=== PATIENT | female | born 1960 | race Caucasian/White ===

== ENCOUNTER 2016-11-12 00:53 | Inpatient (IN) | payer MEDICARE, MEDICAID ==
[2016-11-12] VITALS (21 sets, daily range): BP systolic 105–159; BP diastolic 70–87; PULSE 62–120; RESP 19–24; TEMP 95.2–103.2; O2SAT 99–100
[~2016-11-12] VITALS: Ht 157.5 cm; Wt 53.6 kg
[2016-11-12] MEDS ORDERED: PROPOFOL 1000 MG/100 ML INJ 100 ML ONE (00:59)
[2016-11-12 01:14] LABS: I-STAT POTASSIUM 4.4 MMOL/L (3.5-4.9)
[2016-11-12 01:19] LABS: BASOPHIL # 0.2 TH/MM3 (0-0.2); BASOPHIL % 0.9 % (0.0-2.0); EOSINOPHIL # 0.2 TH/MM3 (0-0.4); EOSINOPHIL % 1.3 % (0.0-4.0); HEMATOCRIT 43.5 % (35.0-46.0); LYMPH % 45.8 % (9.0-44.0); LYMPHOCYTE # 8.5 TH/MM3 (1.0-4.8); MEAN CELL VOLUME 88.2 FL (80.0-100.0); MEAN CORPUSCULAR HEMOGLOBIN 29.1 PG (27.0-34.0); MONO % 3.7 % (0.0-8.0); NEUT % 48.3 % (16.0-70.0); PLATELET COUNT 375 TH/MM3 (150-450); RED BLOOD COUNT 4.93 MIL/MM3 (4.00-5.30); RED CELL DISTRIBUTION WIDTH 14.9 % (11.6-17.2); WHITE BLOOD COUNT 18.6 TH/MM3 (4.0-11.0)
[2016-11-12] MEDS ORDERED: DIPHTH/TETANUS/ACEL PERTUSSIS (BOOSTER) 0.5 ML VIAL/PFS IM ONE (01:20)
[2016-11-12] MEDS: SODIUM CHLOR 0.9% 1000 ML INJ 1,000 ML IV SCH ×2 (01:20→18:04)
[2016-11-12] MEDS ORDERED: IOHEXOL 350 MG/ML 10 ML VIAL (for RAD DIAG) IV ONE (01:23)
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
[2016-11-12 01:25] LABS: APTT (PATIENT) 29.5 SEC (24.3-30.1); PROTHROMBIN TIME - PATIENT 11.5 SEC (9.8-11.6)
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
[2016-11-12 01:27] LABS: HEMO FLAGS AUTO DIFF
[2016-11-12] MEDS ORDERED: SODIUM CHLORIDE 0.9% FLUSH 10 ML FLUSH IV FLUSH PRN (01:30)
[2016-11-12] MEDS ORDERED: ONDANSETRON HCL 4 MG/2 ML VIAL IV PRN (01:30)
[2016-11-12] MEDS ORDERED: NALOXONE HCL 0.4 MG/ML AMP IV PRN (01:30)
[2016-11-12] MEDS ORDERED: Post-op Orders (for Pharmacy) MISC XX ONE (01:30)
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
[2016-11-12] MEDS ORDERED: fentaNYL DRIP 250 ML IV SCH (01:45)
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
[2016-11-12 01:58] LABS: BASOPHILS 1 % (0-2); EOSINOPHILS 2 % (0-4); NEUTROPHIL # MANUAL DIFF 9.3 TH/MM3 (1.8-7.7); POLYS (SEG NEUTROPHILS) 50 % (16-70); WBC DIFF SAMPLE 100
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
[2016-11-12 01:59] LABS: PLATELET ESTIMATE SMEAR NORMAL (NORMAL); PLATELET MORPHOLOGY NORMAL (NORMAL); SCAN/DIFF FINAL DIFF MANUAL
[2016-11-12] MEDS: levETIRAcetam INJ 500 MG in SODIUM CHLORIDE 0.9% INJ 100 ML IV SCH ×3 (02:03→22:06)
[2016-11-12] MEDS: PROPOFOL 1000 MG/100 ML INJ 100 ML IV SCH ×2 (02:04→18:05)
[2016-11-12] MEDS: SODIUM CHLORIDE 0.9% FLUSH 10 ML FLUSH IV FLUSH SCH ×2 (02:04→21:00)
[2016-11-12] MEDS: CHLORHEXIDINE 0.12% (ORAL KIT) 15 ML CUP MT SCH ×2 (02:04→20:00)
[2016-11-12] MEDS: PANTOPRAZOLE SODIUM 40 MG VIAL IV SCH (02:05)
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
[2016-11-12 03:38] LABS: BLOOD GAS BASE EXCESS -9.9 mmol/L (-2-2); BLOOD GAS HCO3 17 mmol/L (22-26); BLOOD GAS O2 HGB SATURATION 98 % (90-100); BLOOD GAS OXYGEN CONTENT 19.4 Vol % (12.0-20.0); BLOOD GAS PCO2 45 mmHg (38-42); BLOOD GAS PO2 495 mmHg (61-120); BLOOD GAS TOTAL HGB 13.2 G/DL (12.0-16.0); CRITICAL VALUE YES; OXYGEN DEVICE VENTILATOR; TEMP CORR TO 98.6; VENT SETTINGS AC18/400/+5
[2016-11-12 03:39] LABS: DRAW SITE ALINE; FIO2 100 %; STAT YES; ULNAR PULSE PRESENT
[2016-11-12] MEDS ORDERED: 3% SALINE INJ 500 ML IV ONE (04:00)
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
[2016-11-12] MEDS: RESP: ALBUTEROL 2.5 MG/IPRATROPIUM 0.5 MG NEB (SCH) NEB ×5 (04:34→21:10)
[2016-11-12] MEDS: fentaNYL DRIP 250 ML IV SCH ×2 (07:00→19:22)
--- NOTE | 2016-11-12 07:04 | RADRPT ---
EXAM DATE/TIME: 11/12/2016 06:04 [facility] COMPARISON: No previous studies available for comparison. INDICATIONS : Central line placement. MEDICAL HISTORY : None. SURGICAL HISTORY : Right shoulder arthroplasty ENCOUNTER: Subsequent ACUITY: 1 day PAIN SCORE: Non-responsive. LOCATION: Bilateral chest FINDINGS: No infiltrate seen. No pleural effusion or pneumothorax. Endotracheal tube tip is about 3 cm above the thee. There is a nasogastric tube with tip in the sto mach. Left subclavian central venous catheter has been placed, tip at the atriocaval junction. CONCLUSION: Lungs remain clear. New left subclavian central venous catheter with tip in the superior vena cava. N o pneumothorax or other acute complication. Brandon Ivy MD on November 12, 2016 at 7:01 Board Certified Radiologist. This report was verified electronically.
[2016-11-12] MEDS ORDERED: POTASSIUM CHLOR 20 MEQ PREMIX 100 ML IV PRN ×2 (07:45)
[2016-11-12] MEDS ORDERED: POTASSIUM PHOSPHATE MONOBASIC 500 MG TAB PO PRN (07:45)
[2016-11-12] MEDS ORDERED: POTASSIUM PHOSPHATE MONOBASIC 500 MG TAB PO/TUBE PRN (07:45)
[2016-11-12] MEDS ORDERED: MAGNESIUM SULFATE INJ 2 GM in SODIUM CHLORIDE 0.9% INJ 96 ML IV PRN (07:45)
[2016-11-12] MEDS ORDERED: SODIUM PHOSPHATE INJ 30 MMOL in SODIUM CHLOR 0.9% 250 ML INJ 240 ML IV PRN (07:45)
[2016-11-12] MEDS ORDERED: POTASSIUM CHLORIDE 25 MEQ EFFERVESCENT TAB PO PRN (07:45)
[2016-11-12] MEDS ORDERED: MAGNESIUM OXIDE 400 MG TAB PO PRN (07:45)
[2016-11-12] MEDS ORDERED: POTASSIUM CHLOR 40 MEQ PREMIX 100 ML IV PRN (07:45)
[2016-11-12] MEDS ORDERED: MAGNESIUM SULFATE INJ 4 GM in SODIUM CHLORIDE 0.9% INJ 92 ML IV PRN (07:45)
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
[2016-11-12] MEDS ORDERED: VANCOMYCIN INJ 1,000 MG in SODIUM CHLOR 0.9% 250 ML INJ 250 ML IV ONE (08:00)
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
[2016-11-12] MEDS: PIPERACIL-TAZO 3.375 GM PREMIX 50 ML IV SCH ×3 (08:30→22:08)
[2016-11-12] MEDS ORDERED: SODIUM CHLORIDE 23.4% INJ 240 MEQ in SYRINGE/BAG 1 EA IV ONE (08:45)
[2016-11-12] MEDS: MANNITOL 12.5 GM/50 ML VIAL IV SCH ×3 (09:00→21:00)
[2016-11-12] MEDS ORDERED: THIAMINE INJ 100 MG in SODIUM CHLORIDE 0.9% INJ 100 ML IV SCH (09:00)
[2016-11-12 09:31] LABS: BLOOD GAS BASE EXCESS -6.5 mmol/L (-2-2); BLOOD GAS CARBOXYHEMOGLOBIN 0.9 % (0-4); BLOOD GAS HCO3 18 mmol/L (22-26); BLOOD GAS METHEMOGLOBIN 0.8 % (0-2); BLOOD GAS O2 HGB SATURATION 98 % (90-100); BLOOD GAS PCO2 35 mmHg (38-42); BLOOD GAS PO2 223 mmHg (61-120); CRITICAL VALUE NO; DRAW SITE ART LINE; FIO2 50 %; NUMBER OF ARTERIAL PUNCTURES 0; OXYGEN DEVICE VENTILATOR; STAT NO; TEMP CORR TO 98.6; ULNAR PULSE PRESENT; VENT SETTINGS AC22/550/PEEP5
[2016-11-12 09:32] LABS: BLOOD GAS BASE EXCESS -5.6 mmol/L (-2-2); BLOOD GAS CARBOXYHEMOGLOBIN 0.7 % (0-4); BLOOD GAS HCO3 21 mmol/L (22-26); BLOOD GAS O2 HGB SATURATION 97 % (90-100); BLOOD GAS OXYGEN CONTENT 18.3 Vol % (12.0-20.0); BLOOD GAS PCO2 53 mmHg (38-42); BLOOD GAS PO2 181 mmHg (61-120); BLOOD GAS TOTAL HGB 13.1 G/DL (12.0-16.0); CRITICAL VALUE YES; OXYGEN DEVICE VENTILATOR; TEMP CORR TO 98.6
[2016-11-12 09:33] LABS: DRAW SITE ART LINE; FIO2 50 %; NUMBER OF ARTERIAL PUNCTURES 0; STAT NO; ULNAR PULSE PRESENT; VENT SETTINGS AC18/400/PEEP5
[2016-11-12] MEDS ORDERED: NOREPINEPHRINE 4 MG/4 ML AMP ONE (09:49)
--- NOTE | 2016-11-12 10:39 | PD.OP ---
Operative Report Date of Surgery: Nov 12, 2016 Preoperative Diagnosis: (1) Traumatic brain injury Traumatic brain injury Postoperative Diagnosis: (1) Traumatic brain injury Procedure: Preoperative Diagnosis: Severe traumatic brain injury with small a small right subdural hematoma Postoperative Diagnosis: Same Procedure: Left frontal twist drill hole Brandy intracranial pressure monitor placement Anesthesia: Local with sedation. Surgeon: Elias Bauman MD Nutrition Coordinator(s): None Operation and Findings: Consent was obtained from her son. Patient is intubated. Neurological examination is poor with a GCS of 3/15. The left frontal region was shaved and the prep with chlor prep and sterilely draped. Using landmarks of 11 cm behind the nasion and 3 cm to the left of the midline, a 1 cm scalp incision was made after infiltrating with 1% lidocaine with epinephrine solution. With a handheld drill a twist drill hole was made in the underlying dura penetrated with a blunt probe. The Brandy bolt was then secured to the skull. The fiberoptic catheter zeroed and passed into the subarachnoid space with an opening pressure of 12 mmHg noted. A sterile dressing was applied. There were no complications and blood loss was less than 5 cc. Surgeon: Elias Conteh Nutrition Coordinator(s): None Elias Conteh MD Nov 12, 2016 10:38
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
[2016-11-12] MEDS: NOREPINEPHRINE INJ 4 MG in SODIUM CHLOR 0.9% 250 ML INJ 250 ML IV SCH ×3 (11:53→22:05)
[2016-11-12 11:55] LABS: ALKALINE PHOSPHATASE 79 U/L (45-117); ALT (GPT) 51 U/L (10-53); ANION GAP 11 MEQ/L (5-15); AST (GOT) 113 U/L (15-37); BICARBONATE 20.6 MEQ/L (21.0-32.0); BLOOD UREA NITROGEN 10 MG/DL (7-18); CHLORIDE 126 MEQ/L (98-107); GLOMERULAR FILTRATION RATE 55 ML/MIN (>89); MAGNESIUM 2.1 MG/DL (1.5-2.5); POTASSIUM 3.7 MEQ/L (3.5-5.1); SODIUM (NA) 158 MEQ/L (136-145); TOTAL BILIRUBIN ADULT 0.6 MG/DL (0.2-1.0)
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
[2016-11-12] MEDS ORDERED: ALBUMIN HUMAN 5% 12.5 GM/250 ML BOTTLE IV ONE (14:18)
[2016-11-12] MEDS ORDERED: ROCURONIUM INJ 50 MG/5 ML VIAL ONE (14:25)
[2016-11-12] MEDS ORDERED: PHENYLEPHRINE HCL 10 MG/ML VIAL ONE ×2 (14:26→18:38)
[2016-11-12] MEDS ORDERED: TERBUTALINE INJ 1 MG/ML AMP SQ PRN (14:30)
[2016-11-12] MEDS ORDERED: SODIUM CHLOR 0.9% 1000 ML INJ 1,000 ML IV ONE (14:30)
[2016-11-12] MEDS ORDERED: RESP: ALBUTEROL 2.5 MG/IPRATROPIUM 0.5 MG NEB (PRN) NEB (15:15)
[2016-11-12] MEDS: PHENYLEPHRINE INJ 40 MG in DEXTROSE 5% IN WATE 500 ML INJ 496 ML IV SCH ×4 (15:26→22:05)
[2016-11-12 17:36] LABS: BLOOD GAS HCO3 16 mmol/L (22-26); BLOOD GAS METHEMOGLOBIN 0.9 % (0-2); BLOOD GAS O2 HGB SATURATION 98 % (90-100); BLOOD GAS OXYGEN CONTENT 16.1 Vol % (12.0-20.0); BLOOD GAS PO2 208 mmHg (61-120); BLOOD GAS TOTAL HGB 11.4 G/DL (12.0-16.0); TEMP CORR TO 98.6
[2016-11-12 17:37] LABS: CRITICAL VALUE YES; DRAW SITE ART LINE; FIO2 40 %; OXYGEN DEVICE VENTILATOR; STAT NO; VENT SETTINGS A/C24/600/+5PEEP
[2016-11-12 17:38] LABS: BLOOD GAS PCO2 27 mmHg (38-42)
[2016-11-12] MEDS ORDERED: SODIUM BICARBONATE 8.4% INJ 50 MEQ/50 ML SYR ONE (17:40)
[2016-11-12] MEDS ORDERED: SODIUM BICARBONATE 8.4% SOLN 50 MEQ/50 ML VIAL IV ONE (18:45)
[2016-11-12] MEDS ORDERED: DESMOPRESSIN ACETATE 4 MCG/ML VIAL IV ONE (18:45)
[2016-11-12 20:45] LABS: BLOOD GAS BASE EXCESS -8.9 mmol/L (-2-2); BLOOD GAS CARBOXYHEMOGLOBIN 0.7 % (0-4); BLOOD GAS HCO3 16 mmol/L (22-26); BLOOD GAS METHEMOGLOBIN 0.7 % (0-2); BLOOD GAS O2 HGB SATURATION 98 % (90-100); BLOOD GAS OXYGEN CONTENT 17.3 Vol % (12.0-20.0); BLOOD GAS PCO2 30 mmHg (38-42); BLOOD GAS PO2 228 mmHg (61-120); BLOOD GAS TOTAL HGB 12.2 G/DL (12.0-16.0); TEMP CORR TO 98.6
[2016-11-12 20:47] LABS: CRITICAL VALUE YES; DRAW SITE ART LINE; FIO2 100 %; LITER FLOW 15 L/M; OXYGEN DEVICE AMBU; STAT YES
[2016-11-12 20:52] LABS: AUTOMATED NEUTROPHIL # 16.6 TH/MM3 (1.8-7.7); BASOPHIL # 0.1 TH/MM3 (0-0.2); BASOPHIL % 0.6 % (0.0-2.0); EOSINOPHIL # 0.1 TH/MM3 (0-0.4); EOSINOPHIL % 0.2 % (0.0-4.0); HEMO FLAGS DIFF FINAL; LYMPH % 18.7 % (9.0-44.0); LYMPHOCYTE # 4.3 TH/MM3 (1.0-4.8); MEAN CELL VOLUME 86.9 FL (80.0-100.0); MEAN CORPUSCULAR HEMOGLOBIN 28.3 PG (27.0-34.0); MEAN CORPUSCULAR HGB CONC 32.6 % (32.0-36.0); MONO % 7.5 % (0.0-8.0); PLATELET COUNT 158 TH/MM3 (150-450); RED BLOOD COUNT 4.26 MIL/MM3 (4.00-5.30); RED CELL DISTRIBUTION WIDTH 15.1 % (11.6-17.2); WHITE BLOOD COUNT 22.8 TH/MM3 (4.0-11.0)
[2016-11-12] MEDS: DOCUSATE SODIUM 100 MG CAP PO SCH (21:00)
[2016-11-12] MEDS ORDERED: SODIUM BICARBONATE 8.4% INJ 50 MEQ/50 ML SYR IV ONE (21:00)
[2016-11-12] MEDS ORDERED: MAGNESIUM HYDROXIDE SUSP 30 ML CUP PO SCH (21:00)
--- NOTE | 2016-11-12 21:16 | RADRPT ---
EXAM DATE/TIME: 11/12/2016 20:51 [facility] COMPARISON: CHEST SINGLE AP, November 12, 2016, 6:04. INDICATIONS : Shortness of breath post code. MEDICAL HISTORY : None. SURGICAL HISTORY : Right shoulder arthroplasty ENCOUNTER: Subsequent ACUITY: 1 day PAIN SCORE: Non-responsive. LOCATION: chest FINDINGS: Lines and tubes are present not significantly changed. The lungs are clear without infiltrate, nodule , or mass. There is no appreciable pleural effusion for technique. Heart and mediastinum are unrema rkable. CONCLUSION: No acute cardiopulmonary disease. Savi Hilton MD on November 12, 2016 at 21:11 Board Certified Radiologist. This report was verified electronically.
[2016-11-12 21:27] LABS: ALKALINE PHOSPHATASE 69 U/L (45-117); ALT (GPT) 80 U/L (10-53); ANION GAP 10 MEQ/L (5-15); AST (GOT) 168 U/L (15-37); BLOOD UREA NITROGEN 11 MG/DL (7-18); CHLORIDE 133 MEQ/L (98-107); GLOMERULAR FILTRATION RATE 42 ML/MIN (>89); MAGNESIUM 2.5 MG/DL (1.5-2.5); POTASSIUM 4.6 MEQ/L (3.5-5.1); TOTAL BILIRUBIN ADULT 0.9 MG/DL (0.2-1.0)
[2016-11-12 21:28] LABS: SODIUM (NA) 161 MEQ/L (136-145)
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
[2016-11-12 22:16] LABS: BLOOD GAS BASE EXCESS -4.4 mmol/L (-2-2); BLOOD GAS HCO3 18 mmol/L (22-26); BLOOD GAS O2 HGB SATURATION 98 % (90-100); BLOOD GAS PO2 174 mmHg (61-120); BLOOD GAS TOTAL HGB 10.7 G/DL (12.0-16.0); TEMP CORR TO 98.6
[2016-11-12 22:17] LABS: BLOOD GAS PCO2 22 mmHg (38-42); CRITICAL VALUE YES; OXYGEN DEVICE VENTILATOR
[2016-11-12 22:18] LABS: DRAW SITE ART LINE; FIO2 40 %; STAT YES; VENT SETTINGS AC 24/600/5PEEP
--- NOTE | 2016-11-12 22:32 | RADRPT ---
EXAM DATE/TIME: 11/12/2016 22:17 [facility] COMPARISON: CHEST SINGLE AP, November 12, 2016, 20:51. INDICATIONS : Evaluate lung status. Post code. MEDICAL HISTORY : None. SURGICAL HISTORY : Right shoulder arthroplasty. ENCOUNTER: Subsequent ACUITY: 1 day PAIN SCORE: Non-responsive. LOCATION: Bilateral chest FINDINGS: The lungs are clear without infiltrate, nodule, or mass. There is no appreciable pleural effusion fo r technique. Heart and mediastinum are unremarkable. Lines and tubes are present not significantly c hanged. CONCLUSION: No acute cardiopulmonary disease. Savi Hilton MD on November 12, 2016 at 22:30 Board Certified Radiologist. This report was verified electronically.
[2016-11-12] MEDS: AMIODARONE INJ 450 MG in D5W (EXCEL BAG) 241 ML IV SCH (22:50)
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
[2016-11-12] MEDS ORDERED: AMIODARONE INJ 450 MG in D5W (EXCEL BAG) 241 ML IV SCH (23:00)
[2016-11-13] VITALS (13 sets, daily range): BP systolic 112–153; BP diastolic 67–95; PULSE 66–101; RESP 14–22; TEMP 95.8–99; O2SAT 96–100
[2016-11-13] MEDS ORDERED: MIDAZOLAM HCL 5 MG/ML VIAL (1 ML) ONE (00:23)
[2016-11-13] MEDS: PROPOFOL 1000 MG/100 ML INJ 100 ML IV SCH ×2 (00:31→06:48)
[2016-11-13] MEDS: PANTOPRAZOLE SODIUM 40 MG VIAL IV SCH (00:36)
[2016-11-13] MEDS: PHENYLEPHRINE INJ 40 MG in DEXTROSE 5% IN WATE 500 ML INJ 496 ML IV SCH ×6 (00:44→12:42)
[2016-11-13] MEDS ORDERED: MIDAZOLAM HCL 5 MG/5 ML VIAL IV PUSH ONE (01:00)
[2016-11-13] MEDS ORDERED: MIDAZOLAM 100 MG/NS 100 ML DRIP Premix IV SCH (01:00)
[2016-11-13] MEDS: RESP: ALBUTEROL 2.5 MG/IPRATROPIUM 0.5 MG NEB (SCH) NEB ×4 (01:17→11:37)
[2016-11-13] MEDS: PIPERACIL-TAZO 3.375 GM PREMIX 50 ML IV SCH ×3 (01:31→15:28)
[2016-11-13] MEDS: MANNITOL 12.5 GM/50 ML VIAL IV SCH ×3 (03:00→15:00)
[2016-11-13 03:19] LABS: AUTOMATED NEUTROPHIL # 14.8 TH/MM3 (1.8-7.7); BASOPHIL % 0.3 % (0.0-2.0); EOSINOPHIL % 0.2 % (0.0-4.0); HEMATOCRIT 35.5 % (35.0-46.0); HEMO FLAGS DIFF FINAL; LYMPHOCYTE # 1.5 TH/MM3 (1.0-4.8); MEAN CELL VOLUME 87.2 FL (80.0-100.0); MEAN CORPUSCULAR HEMOGLOBIN 28.3 PG (27.0-34.0); MEAN CORPUSCULAR HGB CONC 32.5 % (32.0-36.0); MONO % 3.7 % (0.0-8.0); NEUT % 86.8 % (16.0-70.0); PLATELET COUNT 111 TH/MM3 (150-450); RED BLOOD COUNT 4.07 MIL/MM3 (4.00-5.30)
[2016-11-13 03:36] LABS: BICARBONATE 18.5 MEQ/L (21.0-32.0)
[2016-11-13 03:38] LABS: TOTAL BILIRUBIN ADULT 0.9 MG/DL (0.2-1.0)
[2016-11-13 03:40] LABS: POTASSIUM 2.7 MEQ/L (3.5-5.1)
[2016-11-13] MEDS: POTASSIUM CHLOR 40 MEQ PREMIX 100 ML IV PRN ×2 (03:49→10:40)
[2016-11-13] MEDS: NOREPINEPHRINE INJ 4 MG in SODIUM CHLOR 0.9% 250 ML INJ 250 ML IV SCH ×2 (04:19→13:24)
[2016-11-13] MEDS ORDERED: EPINEPHrine HCL (1:10,000) 1 MG/10 ML SYRINGE IV ONE (05:00)
[2016-11-13] MEDS ORDERED: AMIODARONE HCL 150 MG/3 ML VIAL IV ONE (05:00)
[2016-11-13] MEDS ORDERED: LIDOCAINE HCL 2% 100 MG/5 ML SYRINGE IV PUSH ONE (05:00)
[2016-11-13] MEDS ORDERED: SODIUM BICARBONATE 8.4% INJ 50 MEQ/50 ML SYR IV ONE (05:00)
[2016-11-13 05:50] LABS: BLOOD GAS BASE EXCESS -6.4 mmol/L (-2-2); BLOOD GAS HCO3 17 mmol/L (22-26); BLOOD GAS METHEMOGLOBIN 0.8 % (0-2); BLOOD GAS O2 HGB SATURATION 98 % (90-100); BLOOD GAS OXYGEN CONTENT 15.3 Vol % (12.0-20.0); BLOOD GAS PCO2 28 mmHg (38-42); BLOOD GAS PO2 199 mmHg (61-120); BLOOD GAS TOTAL HGB 10.8 G/DL (12.0-16.0); TEMP CORR TO 98.6
[2016-11-13 05:51] LABS: CRITICAL VALUE NO; FIO2 40 %; OXYGEN DEVICE VENTILATOR; VENT SETTINGS A/C20/500/+5PEEP
[2016-11-13 05:52] LABS: DRAW SITE ART LINE; STAT NO
--- NOTE | 2016-11-13 06:01 | RADRPT ---
EXAM DATE/TIME: 11/13/2016 04:27 [facility] COMPARISON: CHEST SINGLE AP, November 12, 2016, 22:17. INDICATIONS : Shortness of breath, possible pulmonary disease. MEDICAL HISTORY : None. SURGICAL HISTORY : Right shoulder arthroplasty ENCOUNTER: Subsequent ACUITY: 2 days PAIN SCORE: Non-responsive. LOCATION: Bilateral chest FINDINGS: Suspected mild infiltrate developing in the right lower lobe. No pleural effusion. No pneumothorax. Heart size stable, within normal limits. Endotracheal tube tip is approximately 4 cm above the thee. There is a nasogastric tube coiled in t he stomach and a left subclavian central venous catheter with tip in the superior vena cava. CONCLUSION: Mild right base consolidation developing. Brandon Ivy MD on November 13, 2016 at 5:59 Board Certified Radiologist. This report was verified electronically.
[2016-11-13] MEDS: fentaNYL DRIP 250 ML IV SCH (06:49)
[2016-11-13] MEDS: CHLORHEXIDINE 0.12% (ORAL KIT) 15 ML CUP MT SCH ×2 (08:00→20:00)
[2016-11-13] MEDS: levETIRAcetam INJ 500 MG in SODIUM CHLORIDE 0.9% INJ 100 ML IV SCH (08:33)
[2016-11-13] MEDS ORDERED: MULTIVITAMIN INJ 10 ML, THIAMINE INJ 100 MG, FOLIC ACID INJ 1 MG in SODIUM CHLORID 0.9%... IV SCH (09:00)
[2016-11-13] MEDS: DOCUSATE SODIUM 100 MG CAP PO SCH (09:00)
[2016-11-13] MEDS ORDERED: PNEUMOCOCCAL POLYVALENT INJ 25 MCG/0.5 ML SYR IM ONE (10:00)
[2016-11-13] MEDS ORDERED: INFLUENZA VIRUS VACCINE (QUADRIVALENT) 0.5 ML SYR IM ONE (10:00)
[2016-11-13] MEDS ORDERED: PHENYLEPHRINE HCL 10 MG/ML VIAL ONE (11:04)
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
[2016-11-13 13:31] LABS: BLOOD GAS BASE EXCESS -4.6 mmol/L (-2-2); BLOOD GAS CARBOXYHEMOGLOBIN 0.9 % (0-4); BLOOD GAS HCO3 21 mmol/L (22-26); BLOOD GAS METHEMOGLOBIN 0.9 % (0-2); BLOOD GAS O2 HGB SATURATION 95 % (90-100); BLOOD GAS OXYGEN CONTENT 14.5 Vol % (12.0-20.0); BLOOD GAS PCO2 44 mmHg (38-42); BLOOD GAS PO2 104 mmHg (61-120); BLOOD GAS TOTAL HGB 10.8 G/DL (12.0-16.0); TEMP CORR TO 98.6
[2016-11-13 13:32] LABS: CRITICAL VALUE YES; DRAW SITE ART LINE; FIO2 40 %; OXYGEN DEVICE VENTILATOR; STAT NO
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
[2016-11-13] MEDS ORDERED: LEVOTHYROXINE SODIUM 100 MCG VIAL IV PUSH ONE (14:30)
[2016-11-13] MEDS ORDERED: DOPamine INJ PREMIX 500 ML IV SCH (14:30)
[2016-11-13] MEDS ORDERED: SODIUM CHLORIDE 0.9% IV ONE (14:45)
[2016-11-13] MEDS ORDERED: DEXTROSE 50% IN WATER 50 ML SYRINGE IV ONE (14:45)
[2016-11-13] MEDS ORDERED: INSULIN HUMAN REGULAR 1,000 UNITS/10 ML VIAL IV PUSH ONE (14:45)
[2016-11-13] MEDS ORDERED: METHYLPREDNISOLONE SO SUCC IV ONE (14:45)
[2016-11-13] MEDS ORDERED: CEFEPIME 1000 MG/NS 100 ML IV SCH ×2 (15:00)
[2016-11-13 15:40] LABS: AUTOMATED NEUTROPHIL # 10.3 TH/MM3 (1.8-7.7); BASOPHIL # 0.1 TH/MM3 (0-0.2); BASOPHIL % 0.4 % (0.0-2.0); EOSINOPHIL # 0.2 TH/MM3 (0-0.4); EOSINOPHIL % 1.6 % (0.0-4.0); HEMATOCRIT 31.9 % (35.0-46.0); LYMPH % 21.6 % (9.0-44.0); LYMPHOCYTE # 3.1 TH/MM3 (1.0-4.8); MEAN CELL VOLUME 87.3 FL (80.0-100.0); MEAN CORPUSCULAR HGB CONC 32.1 % (32.0-36.0); MONO % 4.5 % (0.0-8.0); NEUT % 71.9 % (16.0-70.0); PLATELET COUNT 69 TH/MM3 (150-450); RED BLOOD COUNT 3.66 MIL/MM3 (4.00-5.30); RED CELL DISTRIBUTION WIDTH 15.2 % (11.6-17.2); WHITE BLOOD COUNT 14.4 TH/MM3 (4.0-11.0)
[2016-11-13 15:41] LABS: HEMO FLAGS AUTO DIFF
--- NOTE | 2016-11-13 15:56 | RADRPT ---
EXAM DATE/TIME: 11/13/2016 14:54 [facility] COMPARISON: CHEST SINGLE AP, November 12, 2016, 22:17. CHEST SINGLE AP, November 13, 2016, 4:27. INDICATIONS : Evaluate for infiltrate. MEDICAL HISTORY : None. SURGICAL HISTORY : None. ENCOUNTER: Initial ACUITY: 1 day PAIN SCORE: Non-responsive. LOCATION: Bilateral chest FINDINGS: Lines and tubes are present not significantly changed. The lungs are clear without infiltrate, nodule , or mass. There is no appreciable pleural effusion for technique. Heart and mediastinum are unrema rkable. CONCLUSION: No acute cardiopulmonary disease. Savi Hilton MD on November 13, 2016 at 15:52 Board Certified Radiologist. This report was verified electronically.
[2016-11-13 15:59] LABS: APTT (PATIENT) 32.4 SEC (24.3-30.1); INTERNATIONAL NORMALIZED RATIO 1.5 RATIO; PROTHROMBIN TIME - PATIENT 16.7 SEC (9.8-11.6)
[2016-11-13] MEDS ORDERED: RESP: ALBUTEROL 2.5 MG/3 ML NEB (SCH) NEB (16:00)
[2016-11-13 16:05] LABS: ANION GAP 6 MEQ/L (5-15); AST (GOT) 191 U/L (15-37); BICARBONATE 23.7 MEQ/L (21.0-32.0); BLOOD UREA NITROGEN 10 MG/DL (7-18); CHLORIDE 127 MEQ/L (98-107); GAMMA GT 54 U/L (5-55); GLOMERULAR FILTRATION RATE 64 ML/MIN (>89); MAGNESIUM 1.6 MG/DL (1.5-2.5); POTASSIUM 3.3 MEQ/L (3.5-5.1)
[2016-11-13 16:07] LABS: AMYLASE 128 U/L (25-115)
[2016-11-13 16:09] LABS: ALKALINE PHOSPHATASE 60 U/L (45-117); ALT (GPT) 108 U/L (10-53); BETA HCG QUANT 2 MIU/ML (0-5); CALCIUM-PROTEIN CORRECTED 8.7 MG/DL (8.5-10.1); CREATINE KINASE 311 U/L (26-192); INDIRECT BILIRUBIN 0.7 MG/DL (0.0-0.8); TOTAL BILIRUBIN ADULT 1.1 MG/DL (0.2-1.0)
[2016-11-13 16:11] LABS: SODIUM (NA) 157 MEQ/L (136-145)
[2016-11-13] MEDS: LEVOTHYROXINE 400 MCG/NS 500 ML IV SCH ×2 (16:15)
[2016-11-13 16:22] LABS: PLATELET ESTIMATE SMEAR LOW (NORMAL); PLATELET MORPHOLOGY NORMAL (NORMAL); SCAN/DIFF AUTO DIFF CONFIRMED
[2016-11-13] MEDS: SODIUM CHLORIDE 23.4% INJ 38.5 MEQ, POTASSIUM CHLORIDE INJ 20 MEQ in WATER STERILE FOR ... IV SCH (16:32)
[2016-11-13] MEDS: VASOPRESSIN 80 U/NS 100 ML Titrate per Translife Protocol IV SCH ×4 (16:41→22:30)
[2016-11-13 16:45] LABS: CKMB 9.4 NG/ML (0.5-3.6)
[2016-11-13] MEDS ORDERED: CLINDAMYCIN INJ 900 MG in SODIUM CHLORIDE 0.9% INJ 100 ML IV SCH (17:00)
[2016-11-13 17:07] LABS: BLOOD, URINE NEG (NEG); GLUCOSE,URINE TRACE mg/dL (NEG); KETONE, URINE NEG (NEG); NITRITE,URINE NEG (NEG); PH, URINE 5.5 (5.0-8.5); SQUAMOUS EPITHELIAL CELL URINE <1 /hpf (0-5); URINE COLOR YELLOW (YELLW/STRAW)
[2016-11-13 17:14] LABS: COMMENT (UR) CULTURE INDICATED; CULTURE IF INDICATED CULTURE INDICATED
[2016-11-13] MEDS: ceFAZolin 1,000 MG/NS 100 ML IV SCH ×2 (18:30)
[2016-11-13] MEDS: SODIUM CHLORIDE 0.9% FLUSH 10 ML FLUSH IV FLUSH SCH ×2 (20:00→21:00)
[2016-11-13] MEDS ORDERED: ICU - SODIUM PHOSPHATE 30 MMOL/NS 250 ML IV PRN ×2 (20:00)
[2016-11-13] MEDS ORDERED: POTASSIUM CHLORIDE 25 MEQ EFFERVESCENT TAB PO PRN (20:00)
[2016-11-13] MEDS ORDERED: ICU - CALL ORDERING PHYSICIAN PRN (20:00)
[2016-11-13] MEDS ORDERED: ICU - MAGNESIUM SULFATE 4 GM/NS 100 ML IV PRN ×2 (20:00)
[2016-11-13] MEDS ORDERED: ICU - MAGNESIUM SULFATE 2 GM/NS 100 ML IV PRN ×2 (20:00)
[2016-11-13] MEDS ORDERED: ICU - POTASSIUM CHLORIDE/AQUEOUS SOLN 40 MEQ/100 ML IVPB IV PRN (20:00)
[2016-11-13] MEDS ORDERED: ALBUMIN HUMAN 5% 25 GM/500 ML BOTTLE IV ONE (20:00)
[2016-11-13] MEDS ORDERED: ICU - POTASSIUM CHLORIDE/AQUEOUS SOLN 20 MEQ/100 ML IVPB IV PRN (20:00)
[2016-11-13] MEDS ORDERED: ICU - D/C ICU ELECTROLYTE ORDERS PRN (20:00)
[2016-11-13] MEDS ORDERED: ICU - MAGNESIUM OXIDE 400 MG TAB PO PRN (20:00)
[2016-11-13] MEDS ORDERED: ICU - POTASSIUM PHOSPHATE MONOBASIC 500 MG TAB PO PRN (20:00)
[2016-11-13] MEDS ORDERED: methylPREDNISolone SO SUCC INJ 1,000 MG in DEXTROSE 5% IN WATER INJ 250 ML IV SCH ×2 (22:00)
[2016-11-13] MEDS ORDERED: methylPREDNISolone SOD SUCC 1000 MG/16 ML VIAL IV SCH (22:00)
[2016-11-13] MEDS: METHYLPREDNISOLONE SO SUCC IV SCH (22:30)
[2016-11-13] MEDS: SODIUM CHLOR 0.9% IV SCH (22:30)
--- NOTE | 2016-11-13 22:34 | EKG ---
Date Performed: 11/12/2016 Time Performed: 21:34:06 PTAGE: 56 years EKG: Sinus rhythm PVCs Left axis deviation Inferior infarct - age undetermined Possible anterior infarct - age undeter mined Major diffuse ST-T changes may be due to myocardial ischemia Abnormal ECG NO PREVIOUS TRACING DOCTOR: Dorita Wilson Interpretating Date/Time 11/13/2016 22:33:06
[2016-11-14] VITALS (8 sets, daily range): BP systolic 122–128; BP diastolic 57–61; PULSE 62–69; RESP 14; TEMP 97.5–98.9; O2SAT 98–100
[2016-11-14] MEDS ORDERED: ALBUMIN HUMAN 25% 25 GM/100 ML BAGP IV ONE (00:30)
[2016-11-14 00:55] LABS: AUTOMATED NEUTROPHIL # 10.7 TH/MM3 (1.8-7.7); BASOPHIL % 0.2 % (0.0-2.0); EOSINOPHIL % 0.1 % (0.0-4.0); HEMATOCRIT 28.7 % (35.0-46.0); LYMPH % 6.2 % (9.0-44.0); LYMPHOCYTE # 0.7 TH/MM3 (1.0-4.8); MEAN CELL VOLUME 86.9 FL (80.0-100.0); MEAN CORPUSCULAR HEMOGLOBIN 28.1 PG (27.0-34.0); MEAN CORPUSCULAR HGB CONC 32.3 % (32.0-36.0); MONO % 1.7 % (0.0-8.0); NEUT % 91.8 % (16.0-70.0); PLATELET COUNT 57 TH/MM3 (150-450); RED BLOOD COUNT 3.31 MIL/MM3 (4.00-5.30); RED CELL DISTRIBUTION WIDTH 15.3 % (11.6-17.2); WHITE BLOOD COUNT 11.6 TH/MM3 (4.0-11.0)
[2016-11-14 01:04] LABS: APTT (PATIENT) 31.4 SEC (24.3-30.1); INTERNATIONAL NORMALIZED RATIO 1.5 RATIO; PROTHROMBIN TIME - PATIENT 17.4 SEC (9.8-11.6)
[2016-11-14 01:12] LABS: BICARBONATE 23.8 MEQ/L (21.0-32.0); HEMO FLAGS AUTO DIFF; INDIRECT BILIRUBIN 1.1 MG/DL (0.0-0.8); MAGNESIUM 1.5 MG/DL (1.5-2.5); POTASSIUM 3.6 MEQ/L (3.5-5.1)
[2016-11-14 01:47] LABS: ACANTHOCYTES OCC (NORMAL); SCAN/DIFF AUTO DIFF CONFIRMED
[2016-11-14 02:47] LABS: BLOOD GAS BASE EXCESS -4.8 mmol/L (-2-2); BLOOD GAS CARBOXYHEMOGLOBIN 1.2 % (0-4); BLOOD GAS HCO3 20 mmol/L (22-26); BLOOD GAS METHEMOGLOBIN 0.9 % (0-2); BLOOD GAS O2 HGB SATURATION 96 % (90-100); BLOOD GAS PCO2 37 mmHg (38-42); BLOOD GAS PO2 121 mmHg (61-120); BLOOD GAS TOTAL HGB 9.5 G/DL (12.0-16.0); CRITICAL VALUE NO; OXYGEN DEVICE VENTILATOR; TEMP CORR TO 98.6
[2016-11-14 02:48] LABS: DRAW SITE ART LINE; FIO2 40 %; STAT YES; VENT SETTINGS PRVC/AC
[2016-11-14] MEDS: ceFAZolin 1,000 MG/NS 100 ML IV SCH ×2 (03:10)
[2016-11-14 03:28] LABS: AUTOMATED NEUTROPHIL # 9.3 TH/MM3 (1.8-7.7); BASOPHIL # 0.1 TH/MM3 (0-0.2); BASOPHIL % 0.7 % (0.0-2.0); HEMATOCRIT 23.8 % (35.0-46.0); LYMPH % 6.8 % (9.0-44.0); LYMPHOCYTE # 0.7 TH/MM3 (1.0-4.8); MEAN CORPUSCULAR HGB CONC 33.7 % (32.0-36.0); MONO % 1.5 % (0.0-8.0); PLATELET COUNT 62 TH/MM3 (150-450); RED BLOOD COUNT 2.77 MIL/MM3 (4.00-5.30); RED CELL DISTRIBUTION WIDTH 15.2 % (11.6-17.2); WHITE BLOOD COUNT 10.2 TH/MM3 (4.0-11.0)
[2016-11-14 03:40] LABS: HEMO FLAGS AUTO DIFF
[2016-11-14] MEDS: LEVOTHYROXINE 400 MCG/NS 500 ML IV SCH ×2 (03:46)
[2016-11-14 03:52] LABS: BICARBONATE 23.8 MEQ/L (21.0-32.0); CALCIUM-PROTEIN CORRECTED 8.5 MG/DL (8.5-10.1); MAGNESIUM 1.4 MG/DL (1.5-2.5); POTASSIUM 3.7 MEQ/L (3.5-5.1); TOTAL BILIRUBIN ADULT 1.6 MG/DL (0.2-1.0)
[2016-11-14 03:53] LABS: BLOOD GAS BASE EXCESS -5.3 mmol/L (-2-2); BLOOD GAS CARBOXYHEMOGLOBIN 0.9 % (0-4); BLOOD GAS HCO3 22 mmol/L (22-26); BLOOD GAS METHEMOGLOBIN 1.1 % (0-2); BLOOD GAS O2 HGB SATURATION 97 % (90-100); BLOOD GAS OXYGEN CONTENT 10.9 Vol % (12.0-20.0); BLOOD GAS PCO2 66 mmHg (38-42); BLOOD GAS PO2 216 mmHg (61-120); BLOOD GAS TOTAL HGB 7.6 G/DL (12.0-16.0); CRITICAL VALUE YES; TEMP CORR TO 98.6
[2016-11-14 03:54] LABS: DRAW SITE ALINE; LITER FLOW 8 L/M; OXYGEN DEVICE NASAL CANNULA; STAT YES
--- NOTE | 2016-11-14 04:18 | RADRPT ---
EXAM DATE/TIME: 11/14/2016 02:57 [facility] COMPARISON: CHEST SINGLE AP, November 13, 2016, 14:54. INDICATIONS : Shortness of breath, possible pulmonary disease. Potential Organ Donor. MEDICAL HISTORY : None. SURGICAL HISTORY : None. ENCOUNTER: Subsequent ACUITY: 3 days PAIN SCORE: Non-responsive. LOCATION: Bilateral chest FINDINGS: The cardiac silhouette is enlarged in transverse diameter. Support lines and tubes are in satisfactor y position. The lungs are free of acute parenchymal opacity. No effusions are identified. CONCLUSION: 1. Cardiomegaly. No acute pulmonary disease. Huber Mcmanus MD on November 14, 2016 at 4:16 Board Certified Radiologist. This report was verified electronically.
[2016-11-14 05:04] LABS: PLATELET ESTIMATE SMEAR LOW (NORMAL); PLATELET MORPHOLOGY NORMAL (NORMAL); SCAN/DIFF AUTO DIFF CONFIRMED
[2016-11-14] MEDS: METHYLPREDNISOLONE SO SUCC IV SCH (05:49)
[2016-11-14] MEDS: SODIUM CHLOR 0.9% IV SCH (05:49)
[2016-11-14] MEDS: SODIUM CHLORIDE 23.4% INJ 38.5 MEQ, POTASSIUM CHLORIDE INJ 20 MEQ in WATER STERILE FOR ... IV SCH (05:49)
[2016-11-14 06:12] LABS: BLOOD GAS BASE EXCESS -4.5 mmol/L (-2-2); BLOOD GAS CARBOXYHEMOGLOBIN 1.2 % (0-4); BLOOD GAS HCO3 20 mmol/L (22-26); BLOOD GAS METHEMOGLOBIN 0.9 % (0-2); BLOOD GAS O2 HGB SATURATION 98 % (90-100); BLOOD GAS OXYGEN CONTENT 10.4 Vol % (12.0-20.0); BLOOD GAS PCO2 36 mmHg (38-42); BLOOD GAS PO2 221 mmHg (61-120); BLOOD GAS TOTAL HGB 7.2 G/DL (12.0-16.0); CRITICAL VALUE NO; DRAW SITE ALINE; FIO2 50 %; OXYGEN DEVICE VENTILATOR; STAT NO; TEMP CORR TO 98.6; ULNAR PULSE PRESENT
[2016-11-14 06:13] LABS: VENT SETTINGS PRVC14/450/0.9/+5
[2016-11-14] MEDS ORDERED: EPINEPHrine HCL (1:10,000) 1 MG/10 ML SYRINGE ONE (07:12)
[2016-11-14] MEDS: RESP: ALBUTEROL 2.5 MG/3 ML NEB (SCH) INH ×2 (08:00→11:17)
[2016-11-14 08:01] LABS: BICARBONATE 22.9 MEQ/L (21.0-32.0); MAGNESIUM 2.6 MG/DL (1.5-2.5); POTASSIUM 3.7 MEQ/L (3.5-5.1)
[2016-11-14 08:17] LABS: CALCIUM-PROTEIN CORRECTED 8.2 MG/DL (8.5-10.1)
[2016-11-14] MEDS ORDERED: ICU - MAGNESIUM SULFATE 4 GM/NS 100 ML IV PRN ×2 (09:15)
[2016-11-14] MEDS ORDERED: ICU - MAGNESIUM SULFATE 2 GM/NS 100 ML IV PRN ×2 (09:15)
[2016-11-14] MEDS ORDERED: ICU - SODIUM PHOSPHATE 30 MMOL/NS 250 ML IV PRN ×2 (09:15)
[2016-11-14] MEDS ORDERED: ICU - POTASSIUM PHOSPHATE MONOBASIC 500 MG TAB PO PRN (09:15)
[2016-11-14] MEDS ORDERED: ICU - POTASSIUM CHLORIDE/AQUEOUS SOLN 40 MEQ/100 ML IVPB IV PRN (09:15)
[2016-11-14] MEDS ORDERED: ICU - MAGNESIUM OXIDE 400 MG TAB PO PRN (09:15)
[2016-11-14] MEDS ORDERED: ICU - POTASSIUM CHLORIDE/AQUEOUS SOLN 20 MEQ/100 ML IVPB IV PRN (09:15)
[2016-11-14] MEDS ORDERED: ICU - D/C ICU ELECTROLYTE ORDERS PRN (09:15)
[2016-11-14] MEDS ORDERED: ICU - CALL ORDERING PHYSICIAN PRN (09:15)
[2016-11-14] MEDS ORDERED: POTASSIUM CHLORIDE 25 MEQ EFFERVESCENT TAB PO PRN (09:15)
--- NOTE | 2016-11-14 09:16 | EC ---
Study Study Date:11/14/2016 STUDY CONCLUSIONS SUMMARY - Left ventricle: The cavity size was dilated. Wall thickness was normal. Systolic function was normal. The estimated ejection fraction was 25%. Large area of distal anteroseptal, distal lateral and apical akinesis. - Mitral valve: Mild regurgitation. - Pulmonary arteries: PA peak pressure: 33mm Hg (S). If LV function is below 40, please consider prescribing an ACEI or ARB or document rationale for non-use. PROCEDURE DATA STUDY STATUS: Elective. Procedure: Transthoracic echocardiography. Image quality was good. Scanning was performed from the parasternal, apical, and subcostal acoustic windows. Study completion: The patient tolerated the procedure well. Transthoracic echocardiography. M-mode, complete 2D, complete spectral Doppler, and color Doppler. Patient status: Inpatient. CARDIAC ANATOMY LEFT VENTRICLE: The cavity size was dilated. Wall thickness was normal. Systolic function was normal. The estimated ejection fraction was 25%. Large area of distal anteroseptal, distal lateral and apical akinesis. AORTIC VALVE: Trileaflet; normal thickness leaflets. Doppler: Transvalvular velocity was within the normal range. There was no stenosis. No regurgitation. AORTA: Aortic root: The aortic root was normal in size. MITRAL VALVE: Structurally normal valve. Doppler: Transvalvular velocity was within the normal range. There was no evidence for stenosis. Mild regurgitation. Mean gradient: 2mm Hg (D). Peak gradient: 4mm Hg (D). LEFT ATRIUM: The atrium was normal in size. RIGHT VENTRICLE: The cavity size was normal. Wall thickness was normal. PULMONIC VALVE: Doppler: Transvalvular velocity was within the normal range. There was no evidence for stenosis. No regurgitation. TRICUSPID VALVE: Structurally normal valve. Doppler: Transvalvular velocity was within the normal range. Trace regurgitation. PULMONARY ARTERY: The main pulmonary artery was normal-sized. Systolic pressure was within the normal range. RIGHT ATRIUM: The atrium was normal in size. PERICARDIUM: There was no pericardial effusion. SYSTEMIC VEINS: Inferior vena cava: The vessel was normal in size. BASIC MEASUREMENTS ADULT Normal Left ventricle LV internal dimension, ED, chordal level, *42.1 mm 43-52 PLAX LV internal dimension, ES, chordal level, *38.6 mm 23-38 PLAX Fractional shortening, chordal level, PLAX *8 % >29 LV posterior wall thickness, ED 6.09 mm IVS/LVPW ratio, ED 1.19 <1.3 Ventricular septum Septal thickness, ED 7.24 mm Left atrium Anterior-posterior dimension 30 mm Right ventricle RV internal dimension, ED, PLAX *18.9 mm 19-38 DOPPLER MEASUREMENTS ADULT Normal Main pulmonary artery Pressure, S *33 mm Hg =30 Aortic valve VTI, S 28.1 cm Mitral valve Peak E-wave velocity 72.1 cm/s Peak A-wave velocity 80.9 cm/s Mean velocity, D 69.2 cm/s Mean gradient, D 2 mm Hg Peak gradient, D 4 mm Hg Peak E/A ratio 0.9 Tricuspid valve Regurgitant peak velocity 263 cm/s Peak RV-RA gradient, S 28 mm Hg Maximal regurgitant velocity 263 cm/s Systemic veins Estimated CVP 5 mm Hg Right ventricle RV pressure, S *33 mm Hg <30 LEGEND: Mean values are shown as u=mean value. Asterisk (*) childers values outside specified normal range. Prepared and signed by Dorita Wilson [id number]
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
[2016-11-14] MEDS ORDERED: ceFAZolin 1,000 MG/NS 100 ML IV SCH ×2 (11:00)
[2016-11-14 11:13] LABS: HEMOGLOBIN A1a 0.9 %; HEMOGLOBIN A1b 1.7 %; HEMOGLOBIN Ao 86.2 %; HEMOGLOBIN LA1C 1.5 %; HEMOGLOBIN P3 3.9 %
[2016-11-14] MEDS ORDERED: METHYLPREDNISOLONE SO SUCC IV SCH (16:00)
[2016-11-14] MEDS ORDERED: SODIUM CHLOR 0.9% IV SCH (16:00)
--- NOTE | 2016-11-14 22:44 | EKG ---
Date Performed: 11/14/2016 Time Performed: 04:09:16 PTAGE: 56 years EKG: Sinus rhythm Leftward axis Extensive ST-T changes suggest myocardial infarct Abnormal ECG NO PREVIOUS TRACING DOCTOR: Joseph Martin Interpretating Date/Time 11/14/2016 22:44:30
--- NOTE | 2016-11-14 22:53 | EKG ---
Date Performed: 11/13/2016 Time Performed: 20:45:42 PTAGE: 56 years EKG: Probable accelerated junctional rhythm Left anterior fascicular block Anterior infarct - ag e undetermined Possible inferior infarct - age undetermined Lateral ST-T changes may be due to myocar dial ischemia Abnormal ECG NO PREVIOUS TRACING DOCTOR: Joseph Martin Interpretating Date/Time 11/14/2016 22:53:03
--- NOTE | 2016-11-14 23:06 | EKG ---
Date Performed: 11/13/2016 Time Performed: 14:43:14 PTAGE: 56 years EKG: Possible ectopic atrial rhythm. Left axis deviation Inferior infarct - age undetermined Ant erior infarct - age undetermined Lateral ST-T changes may be due to myocardial ischemia Abnormal ECG PREVIOUS TRACING : 11/12/2016 21.34 Compared to prior tracing no significant change DOCTOR: Joseph Martin Interpretating Date/Time 11/14/2016 23:03:39
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
== END 2016-11-13 13:30 | disposition expired | DRG 23 ==
LOC: NEPI 00:53 → EDBD 01:22 → NEDA 01:22 → N03A 01:33
PROVIDERS: ADMIT Surgery; ATTEND Surgery
PROC: 00H032Z Insertion of Monitoring Device into Brain, Percutaneous Approach (ICD-10-PCS; principal; 2016-11-12)
PROC: 5A12012 Performance of Cardiac Output, Single, Manual (ICD-10-PCS; 2016-11-12)
PROC: 5A1945Z Respiratory Ventilation, 24-96 Consecutive Hours (ICD-10-PCS; 2016-11-12)
PROC: 0BH17EZ Insertion of Endotracheal Airway into Trachea, Via Natural or Artificial Opening (ICD-10-PCS; 2016-11-12)
PROC: 4A103BD Monitoring of Intracranial Pressure, Percutaneous Approach (ICD-10-PCS; 2016-11-12)
PROC: 05H633Z Insertion of Infusion Device into Left Subclavian Vein, Percutaneous Approach (ICD-10-PCS; 2016-11-12)
PROC: 03HY32Z Insertion of Monitoring Device into Upper Artery, Percutaneous Approach (ICD-10-PCS; 2016-11-12)
PROC: 5A2204Z Restoration of Cardiac Rhythm, Single (ICD-10-PCS; 2016-11-12)
DX: G93.6 Cerebral edema; I46.9 Cardiac arrest, cause unspecified; I21.4 Non-ST elevation (NSTEMI) myocardial infarction; A41.9 Sepsis, unspecified organism; J69.0 Pneumonitis due to inhalation of food and vomit; G93.40 Encephalopathy, unspecified; J96.00 Acute respiratory failure, unspecified whether with hypoxia or hypercapnia; I47.2 Ventricular tachycardia; S02.119A Unspecified fracture of occiput, initial encounter for closed fracture; R40.2432 Glasgow coma scale score 3-8, at arrival to emergency department; S02.2XXA Fracture of nasal bones, initial encounter for closed fracture; Y04.2XXA Assault by strike against or bumped into by another person, initial encounter; Y92.29 Other specified public building as the place of occurrence of the external cause
CPT/HCPCS: 31500; 61210; 70450; 70486; 71010; 72125; 72170; 74177; 78606; 80048; 80053; 80076; 80307; 81001; 82150; 82330; 82435; 82550; 82552; 82565; 82805; 82947; 82948; 82977; 83036; 83605; 83690; 83735; 83930; 84100; 84132; 84155; 84295; 84484; 84520; 84702; 85007; 85025; 85027; 85610; 85730; 86850; 86900; 86901; 86920; 87040; 87070; 87077; 87086; 87186; 87205; 87641; 92950; 93005; 93306; 94002; 94003; 94640; 94664; 94770; 96374; 99291; A9539; C9113; G0390; J0171; J0282; J0690; J0692; J1265; J1815; J1953; J2150; J2250; J2370; J2405; J2543; J2597; J2930; J3010; J3370; J3411; J3475; J3480; J7030; J7040; J7050; J7060; L0150; L0172; P9045; P9047; Q9967